=== PATIENT | female | born 1995 | race Caucasian/White ===

== ENCOUNTER 2017-01-20 10:15 | Day surgery (SDC) | payer MEDICAID ==
[2017-01-19 15:30] LABS: BASOPHILS 0.4 % (0-2); EOSINOPHILS 3.5 % (0-7); HEMATOCRIT 36.1 % (36.0-48.0); HEMOGLOBIN 11.3 g/dL (12-16); IMMATURE GRANULOCYTES 0.1 % (0-5); LYMPHOCYTES 30.5 % (15-50); MCH 23.9 pg (26.0-34.0); MCHC 31.3 g/dL (31.0-37.0); MCV 76.5 fL (80.0-100.0); MEAN PLATELET VOLUME 11.3 fL (7.4-10.4); MONOCYTES 3.8 % (2-11); NEUTROPHILS 61.7 % (40-80); PLATELET COUNT 286 10x3/uL (130-400); RBC 4.72 10x6/uL (4.00-5.40); RDW 15.9 % (11.5-14.5)
[~2017-01-20] VITALS: Ht 157.5 cm; Wt 112.5 kg
--- NOTE | ~2017-01-20 | OP ---
PATIENT NAME: KRISTY GANN MEDICAL RECORD: [id number] :94 LOCATION:D.OPS ADMISSION DATE: SURGEON: GERALDINE HOOPER MD DATE OF OPERATION: 01/20/2017 PREOPERATIVE DIAGNOSIS: Pelvic pain. POSTOPERATIVE DIAGNOSIS: Dense pelvic adhesions. PROCEDURES: 1. Diagnostic laparoscopy. 2. Lysis of adhesions. SURGEON: GERALDINE HOOPER MD SPORTS WRITER: Soledad Patton. ANESTHESIA: General anesthetic with endotracheal intubation. FINDINGS: Both right and left ovaries adhered to the pelvic sidewall with adhesions of both left and right tube to the lower pelvis and cul-de-sac. Peritoneal inclusion cysts encountered on the left side. Left ovary was unremarkable. Right ovary, at the close of the procedure, with dense adhesions to the bladder and lower pelvis. SPECIMENS REMOVED: None. SPECIMEN DISPOSITION: None applicable. ESTIMATED BLOOD LOSS: Less than 75 cc. FLUIDS: 1400cc of lactated Ringer's. URINE OUTPUT: Quantity sufficient prior to the procedure. COMPLICATIONS: None. DRAINS: None. INDICATIONS: The patient is a 21-year-old female with a history of a hysterectomy and now with deep pelvic pain that is persistent. The patient also has dyspareunia. The patient is consented for diagnostic laparoscopy and any indicated procedure. DESCRIPTION OF PROCEDURE: After informed consent was assured, the patient was taken to the operating room where anesthetic was obtained and she was placed in stirrups. The patient was now prepped and draped in the usual sterile fashion. Attention was directed to the umbilicus where an incision was made and trocar inserted. Pneumoperitoneum was developed. An accessory trocar placed in the midline. Through this, a blunt probe was inserted. The bowel was swept free of the pelvis with the patient in steep Trendelenburg position. Dense adhesions were encountered across the lower cul-de-sac. A second trocar was now placed on the right lower quadrant. Through this, a gyrus coagulation cutter was inserted. With the use of the Gyrus and EndoShears, the adhesions were taken down. After the left ovary was freed and tube was freed, visual inspection OPERATIVE REPORT [id number] KRISTY GANN revealed adhesions without overt evidence of endometriosis. The right side dissection yields only partial freeing of the right ovary. With the dense adhesions to the bladder and sidewall, dissection was discontinued. The pelvis was irrigated with a 20 cc syringe and water and then this was removed. Operative field was inspected and adequate hemostasis has been achieved. The accessory trocars were removed under direct visualization as the pneumoperitoneum was released. Primary trocar was now removed and the skin was reapproximated with a subcuticular stitch. All sites were covered. Sponge, lap and needle count was correct times 2. TRANSINT:[id number] Voice Confirmation ID: [id number] DOCUMENT ID: [id number] GERALDINE HOOPER MD CC: [id number] DICTATION DATE: 01/22/17802 RESIDENTIAL GREEN BUILDING DESIGNER: 01/22/17 0939 [facility] 01/20/17 [facility] [address] [place] [address]
[2017-01-20 07:23] VITALS: BP 110/63; Ht 157.5 cm; Wt 112.5 kg
== END 2017-01-20 15:33 | disposition home or self-care (01) ==
LOC: D.OPS 10:15
PROVIDERS: Obstetrics & Gynecology
DX: N83.209 Unspecified ovarian cyst, unspecified side (principal); R10.2 Pelvic and perineal pain; E66.9 Obesity, unspecified; Z68.42 Body mass index [BMI] 45.0-49.9, adult; Z01.812 Encounter for preprocedural laboratory examination

== ENCOUNTER 2017-02-08 05:04 | Inpatient (IN) | payer MEDICAID ==
[2017-02-05 10:35] LABS: HEMATOCRIT 39.5 % (36.0-48.0); MCH 24.2 pg (26.0-34.0); MCHC 30.4 g/dL (31.0-37.0); MCV 79.8 fL (80.0-100.0); MEAN PLATELET VOLUME 11.4 fL (7.4-10.4); RBC 4.95 10x6/uL (4.00-5.40); RDW 16.6 % (11.5-14.5); WBC 6.5 10x3/uL (4.8-10.8)
[2017-02-08] VITALS (16 sets, daily range): BP systolic 104–137; BP diastolic 53–84; BMI 45.5
--- NOTE | 2017-02-08 11:50 | NUR ---
RECEIVED PT FROM VIA STRETCHER TO ROOM 1274. PT TRANSFERS ONTO BED PER SELF. VSS. PT SLIGHTLY DROWSY. HRRR WITHOUT AUDIBLE MURMUR. BBS CLEAR. BS X 4-HYPOACTIVE X 4. ABDOMINAL DRESSING DRY WITHOUT DRAINAGE. ICE PACK TO INCISION. NO VAGINAL DISCHARGE NOTED. NEG HOMANS' SIGN. PPP. MILD NON-PITTING EDEMA NOTED TO BLE. KAUR TO GRAVITY DRAINING CLOUDY, YELLOW URINE. SCDS ON BLE. PUMP ON. PT INSTRUCTED ON PURPOSE. VERBALIZES UNDERSTANDING. PIV OF LR INFUSING AT 125 ML/R TO RIGHT AC- 22 GAUGE IV. SITE CLEAR. PT C/O INCISIONAL PAIN OF "9" ON 0-10 PAIN SCALE. PT ORIENTED TO ROOM, BED, AND CALL LIGHT. SR UPX2. CALL LIGHT IN REACH. FAMILY AT BEDSIDE.
--- NOTE | 2017-02-08 12:19 | NUR ---
MORPHINE INTERNET SALES MANAGER STARTED ORDERED. PT INSTRUCTED ON MEDICATION AND USE OF BUTTON. PT DEMONSTRATES UNDERSTANDING OF USE OF BUTTON. PT ALSO GIVEN TORADOL 30 MG IVP OVER 2 MINUTES. PT INSTRUCTED ON MED. VERBALIZES UNDERSTANDING.
--- NOTE | 2017-02-08 13:48 | NUR ---
PT LYING SUPINE IN BED. EYES CLOSED. RESP NON-LABORED. PT NOT DISTURBED TO ALLOW FOR REST.
--- NOTE | 2017-02-08 14:15 | NUR ---
PT MOTHER AT DESK. STATES PT REQUESTING SOMETHING TO DRINK. PT DENIES NAUSEA. [place]EMON-[place]OWER [place] SODA PROVIDED TO PT.
--- NOTE | 2017-02-08 14:48 | NUR ---
PT LYING SUPINE IN BED. WAKES UPON VERBAL STIMULATION. ABDOMINAL DRESSING DRY WITHOUT DRAINAGE NOTED. STATES PAIN "6" ON 0-10 PAIN SCALE. STATES PAIN MED RELIEVING PAIN. VOICES NO NEEDS.
--- NOTE | 2017-02-08 15:36 | NUR ---
SOLAR PHOTOVOLTAIC INSTALLER MORPHINE 2 MG BOLUS DOSE GIVEN ORDERED FOR PT C/O INCISIONAL PAIN OF "7" ON 0-10 PAIN SCALE.
--- NOTE | 2017-02-08 16:00 | NUR ---
DR HOOPER TO ROOM. VISITS WITH PT AND PT MOTHER.
--- NOTE | 2017-02-08 16:41 | NUR ---
I/O COMPLETED. PT PROVIDED ICE WATER AND ENCOURAGED TO CONSUME TOLERATED. VERBALIZES UNDERSTANDING.
--- NOTE | 2017-02-08 17:30 | NUR ---
DR HOOPER VISITS WITH PT.
--- NOTE | 2017-02-08 18:00 | NUR ---
PT SITTING UP IN BED. CONSUMING CLEAR LIQUID DIET. TOLERATING WELL.
--- NOTE | 2017-02-08 18:30 | NUR ---
PT LYING SUPINE AND TILTED TO RIGHT SIDE. PROPPED WITH PILLOW. EYES CLOSED. RESP NON-LABORED. PT NOT DISTURBED TO ALLOW FOR REST.
--- NOTE | 2017-02-08 19:19 | NUR ---
PT. AWAKENS TO MOVEMENT IN ROOM. MALE SITTING ON SOFA RUNNING REMOTE CONTROL CAR ACROSS FLOOR. IV OF LACTATED RINGERS INFUSING IN RT AC AREA. NO REDNESS NOR EDEMA NOTED AT IV SITE. IV FLOW RATE AT 125CC/HR. BOWEL SOUNDS HYPOACTIVE AND BREATH SOUNDS CLEAR. ABD. TELFA DRESSING NOTED OVER LOWER ABD. THAT IS CLEAN AND DRY. NO VAGINAL DISCHARGE NOTED. SCDS ON AND FUNCTIONAL. ABD. WITHOUT DISTENSION. KAUR PATENT AND DRAINING WITH 200CC NOTED IN METER AND DRAINAGE BAG. PT. ENCOURAGED TO COUGH AND DEEP BREATH WHICH PT. RESPONDS THAT SHE HAS BEEN. DOZING FREQUENTLY DURING ASSESSMENT. RATES PAIN AN 8 OF 10 ANS STATES HER PAIN MED HAS NOT BEEN WORKING WELL THE LAST 2 HOURS. NODE JS DEVELOPER OF MORPHINE NOTED AT BEDSIDE WITH APPROX. 5ML REMAINING. ICE CAP NOTED TO ABD. DRESSING. ABLE TO MOVE BOTH LEGS ON COMMAND.
--- NOTE | 2017-02-08 19:44 | NUR ---
VISITOR AT BEDSIDE AT PRESENT. PT. AWAKE BUT NOT TALKING AT PRESENT.
--- NOTE | 2017-02-08 20:35 | NUR ---
PT. AWAKENED TO SCAN [place] FOR TORODOL. CONTINUES TO RATE PAIN AN 8 OF 10 ON PAIN SCALE. RELATES THAT SHE HAS NEVER HAD "THIS KIND" OF SURGERY. DISCUSSED WITH PT. THAT DUE TO CUTTING MUSCLE THAT WE WOULD LIKE TO GET HER PAIN TO A 4 OF 10 BUT SHE SHOULD NOT EXPECT TO BE PAIN FREE. PT. STATES UNDERSTANDING. INFORMED OF PURPOSE OF TORADOL AND INFORMED THAT THIS MED COULD ALSO HELP WITH HER PAIN. ENCOURAGED TO COUGH AND DEEP BREATH AND ALSO CHANGED PT. POSITION FOR RT TILT TO RT. SIDE. PT. TURNED WITHOUT ASSISTANCE. KAUR PATENT AND DRAINING WITH 350CC NOTED IN URINE METER. IV CONTINUES AT 125CC/HR. SCDS ON AND FUNCTIONAL. NO VAG. DISCHARGE NOTED. LIGHTS DIMMED. EXPLAINED TO PT. IMPORTANCE OF COUGHING AND DEEP BREATHING AND PT. AGAIN STATES UNDERSTANDING. ENCOURAGED PT. TO SPLINT ABD. WHEN COUGHING.
--- NOTE | 2017-02-08 21:09 | NUR ---
INTO ROOM AND PT. ASLEEP. MALE ON SOFA REQUESTING BLANKET. PILLOW AND BLANKET GIVEN TO HIM. MALE WAKES PT. UP DRAGGING REMOTE FROM UNDER HER ARM AND TURNING TV ON.
--- NOTE | 2017-02-08 21:19 | NUR ---
PEDI INTO ROOM TO TALK WITH PT. REMAINS IN ROOM.
--- NOTE | 2017-02-08 21:57 | NUR ---
SEARCH SPECIALIST SYRINGE EMPTY. SEARCH SPECIALIST TURNED OFF AT THIS TIME.
--- NOTE | 2017-02-08 22:00 | NUR ---
PRESIDING JUDGE COMPLETED AND OFF.
--- NOTE | 2017-02-08 22:10 | NUR ---
DR. HOOPER CALLED AND INFORMED FINGER GRIP MACHINE OPERATOR COMPLETED AND INQUIRED IF PLANS WERE TO CONVERT TO ORAL MEDS. INFORMED THAT EMA REPORTED THAT HE WAS GOING TO CALL UNIT THIS PM FOR FURTHER ORDERS. ORDERS RECEIVED.
--- NOTE | 2017-02-08 22:21 | NUR ---
PT. LYING ON BACK WITH EYES CLOSED. RESPIRATIONS REGULAR.
--- NOTE | 2017-02-08 22:34 | NUR ---
PT. CALLED REQUESTING PAIN MED. PERCOCET 5/325 GIVEN ORDERED WITH ICE WATER PROVIDED. RATES PAIN A 9 OF 10 ON PAIN SCALE. PT. CURRENTLY LOOKING ON PHONE. LIGHTS DIMMED IN ROOM. COUGHING AND DEEP BREATHING DEMONSTRATED X 2 WITH ENCOURAGEMENT.
--- NOTE | 2017-02-08 22:39 | NUR ---
KAUR CATH. DISCONTINUED WITH 270CC NOTED IN URINE METER. IV CONTINUES TO INFUSE AT 125CC/HR. INFORMED PT. THAT BLADDER WAS EMPTIED PRIOR TO TAKING KAUR OUT SO WOULD PROBABLY BE 3-4 HOURS BEFORE NEEDING TO GET UP. PT. STATED UNDERSTANDING. INFORMED OF NOURISHMENTS AVAILABLE . DEX SERVED TO PT. ICE CAP REFILLED FOR ABD. TELFA DRESSING DRY AND INTACT. NO VAG. DRAINAGE NOTED.
--- NOTE | 2017-02-08 23:19 | NUR ---
PT. CONTINUES TO LOOK AT PHONE. REPORTS PAIN IS A 6 OF 10 ON PAIN SCALE. STATES SHE STILL HAS SOME PAIN. AGAIN REVIEWED WITH PT. THAT PAIN MAY NOT BE COMPLETELY RELEAVED BUT SOME IMPROVEMENT IS BEING SEEN AND MED WILL CONTINUE TO WORK SO SOME TIME. PT. STATES UNDERSTANDING. MALE LYING ON SOFA AND STATES HE HELPED HER PUT SOME SHORTS ON.
--- NOTE | 2017-02-09 00:50 | NUR ---
INTO ROOM TO CHECK ON PT. PT. NOTED TO BE SITTING ON SIDE OF BED. SCD SLEEVES OFF AND LYING ON BED. INQUIRED WHY PT. ON SIDE OF BED. PT. STATES THAT SHE PUSHED CALL LIGHT 3 TIMES AND COULDN'T GET IT TO WORK SO SHE GOT UP AND WENT TO BATHROOM AND HAD RETURNED TO BED. STATES SHE VOIDED WELL. PUSHED CALL LIGHT AND CALL LIGHT ALARMED ON FIRST PUSH IN ORDER TO TEST IF CALL LIGHT WAS FUNCTIONAL. PT. OF A CALM DEMEANOR. BACK INTO BED AND SCDS REAPPLIED AND PUMP FUNCTIONAL. SIDE RAILS X 2 REMAIN UP. CALL LIGHT WITHIN REACH. FOB SLEEPING ON SOFA. ORANGE JUICE SERVED PER PT. REQUEST. PT. RATES PAIN A 7 OF 10 AND IS LOOKING ON PHONE. VOIDED 100CC ON [place] HAT.
[2017-02-09 00:52] VITALS: BP 126/61
--- NOTE | 2017-02-09 01:53 | NUR ---
IV PUMP ALARMING OFTEN WITH PT. BENDING RT ARM WITH AC IV PLACEMENT. WASHCLOTH DOUBLED AND TAPED TO AC TO HELP PT. REMEMBER NOT TO BEND ARM BUT HAS BEEN MINIMALLY EFFECTIVE. PT. AWAKE AT PRESENT. STATES SHE IS FEELING A LITTLE NAUSEA. EMESIS BAG GIVEN TO PT. AND COOL CLOTH TO NECK. MALE SLEEPING ON SOFA.
--- NOTE | 2017-02-09 02:11 | NUR ---
PT. TURNED SELF TO RT SIDE AND DOZING AT INTERVALS. IV OF LR COMPLETED AND NEXT LITER UP. MALE SLEEPING ON SOFA.
--- NOTE | 2017-02-09 04:02 | NUR ---
RN CALLED TO PT BS. PT AMBULATED TO BR WITH NO ASSISTANCE. PT ASSISTED WITH REPLACING SCD'S TO LOWER EXTREMITIES. ICE PACK REFRESHED FOR INCISION. PT DENIES ANY FURTHER NEEDS AT THIS TIME. BED IN LOW POSITION, SIDE RAILS UP TIMES 2, CALL LIGHT AND PHONE IN REACH. WILL CONT TO MONITOR PT STATUS.
--- NOTE | 2017-02-09 04:27 | NUR ---
PT. LYING ON RT SIDE. AWAKENED FOR TORADOL IVP SLOWLY INJECTION. RATES PAIN A 6 OF 10 ON PAIN SCALE. PERCOCET 5/325 ALSO ADMINISTERED. ICE WATER PROVIDED. PT. POSITIONED SELF TO LEFT SIDE. IV IN LT AC AREA WITHOUT REDNESS NOR EDEMA. SCDS ON AND FUNCTIONAL. MALE SLEEPING ON SOFA. VITAL SIGNS OBTAINED.
[2017-02-09 04:30] VITALS: BP 116/62
[2017-02-09 05:06] LABS: HEMATOCRIT 34.9 % (36.0-48.0); MCH 24.3 pg (26.0-34.0); MCHC 31.5 g/dL (31.0-37.0); MCV 77.2 fL (80.0-100.0); MEAN PLATELET VOLUME 10.7 fL (7.4-10.4); RBC 4.52 10x6/uL (4.00-5.40); RDW 15.8 % (11.5-14.5); WBC 10.5 10x3/uL (4.8-10.8)
--- NOTE | 2017-02-09 05:26 | NUR ---
LYING ON RT SIDE WITH RESPIRATIONS REGULAR. DOES NOT AROUSE TO THIS NURSE IN ROOM.
--- NOTE | 2017-02-09 06:23 | NUR ---
LYING ON BACK WITH EYES CLOSED. RESPIRATIONS REGULAR. DR. HOOPER CALLED Martine VOGT RN WITH ORDER FOR REGULAR DIET.
[2017-02-09 07:26] VITALS: BP 97/50
--- NOTE | 2017-02-09 07:26 | NUR ---
RECEIVED PT LYING TO RIGHT SIDE. WAKES UPON VERBAL STIMULATION. VSS. HRRR WITHOUT AUDIBLE MURMUR. BBS CLEAR. BS X 4. ABDOMEN SOFT. DRESSING DRY WITHOUT NEW DRAINAGE. NO VAGINAL DISCHARGE NOTED. NEG HOMANS' SIGN. PPP. NO EDEMA NOTED TO BLE. SCDS ON BLE. PIV OF LR INFUSING AT 75 ML/HR. SITE CLEAR TO RIGHT AC. DR HOOPER HERE. VISITS WITH PT. PT SITS UP FOR BREAKFAST. BREAKFAST SERVED. PT PROVIDED [place] SODA AT REQUEST.
--- NOTE | 2017-02-09 07:34 | OP ---
PATIENT NAME: KRISTY GANN MEDICAL RECORD: [id number] :94 LOCATION:[id number] ADMISSION DATE:02/08/17 SURGEON: GERALDINE HOOPER MD DATE OF OPERATION: 02/08/2017 PREOPERATIVE DIAGNOSES: 1. History of pelvic adhesive disease. 2. Chronic pelvic pain. POSTOPERATIVE DIAGNOSES: 1. History of pelvic adhesive disease. 2. Chronic pelvic pain. PROCEDURE: 1. Exploratory laparotomy. 2. Lysis of adhesions. 3. Right salpingo-oophorectomy. 4. Left salpingectomy. SURGEON: Geraldine Hooper MD FLAGSTONE LAYER: Mr. Lucio ANESTHESIOLOGIST: Dr. Dixon. ANESTHESIA: General anesthetic with endotracheal intubation. FINDINGS: Dense pelvic adhesions of the ovary to the sidewall and bladder. Hydrosalpinx identified on the left. SPECIMENS REMOVED: Right tube and ovary and left tube. Specimen disposition, pathology. ESTIMATED BLOOD LOSS: Less than or equal to 50 cc. FLUIDS: 1100cc of lactated Ringer's. URINE OUTPUT: Quantity sufficient void prior to the procedure. COMPLICATIONS: None. DRAINS: Cho to gravity. INDICATIONS: The patient is a 21-year-old female with prior diagnostic laparoscopy showing dense pelvic adhesive disease. The patient has had chronic right pelvic pain. The patient declined medical management with ovarian suppression with Depo Lupron and requests aggressive therapy for her persistent right lower quadrant pain. DESCRIPTION OF PROCEDURE: After risks, benefits and limitations have been described at length, the patient was consented and taken to the operating room where anesthetic was obtained. She was supine on the table and prepped and draped in usual sterile fashion. Pfannenstiel incision was made and the abdomen was entered. Using the Armada retractor and Loza retractor, the bowel was packed free of the pelvis and a Armada retracted the bowel and the superior OPERATIVE REPORT [id number] KRISTY GANN aspect of the incision caudally. The right tube was identified and grasped with Florence clamp. Using long Metzenbaum scissors and pickups, the adhesions were taken down medial to laterally. Once the inferior aspect of the ovary was freed, attention was directed further laterally where the denser adhesions were taken down. Once the pedicle was freed, 2 Zeppelin clamps were placed and the ovary and tube removed. A tie on a pass and a epkc-cbt-owo stitch was placed for hemostasis on the right infundibulopelvic ligament. Attention was directed to the left where hydrosalpinx was encountered and elevated with Babcocks. A 90 degree right angle Zeppelin clamp was placed underneath the hydrosalpinx on the left. This was removed with Metzenbaum scissors and a egtr-vre-exc stitch applied for hemostasis. Pelvis was copiously irrigated and irrigant removed. Fascia was now closed in a running fashion with looped PDS. Subcutaneous tissues were irrigated, bleeding vessels cauterized and the deep tissues were reapproximated with a plain gut stitch. The skin was reapproximated with 4-0 Monocryl on PS2 needle and sterile dressing applied. Sponge, lap and needle counts correct times 2 at the close of this procedure. TRANSINT:[id number] Voice Confirmation ID: [id number] DOCUMENT ID: [id number] GERALDINE HOOPER MD at 0734 CC: [id number] DICTATION DATE: 02/08/17 111 SALES PERFORMANCE ANALYST: 02/08/17 1256 ADM IN [facility] [address] [place] [address]
--- NOTE | 2017-02-09 08:30 | NUR ---
PIV CONVERTED TO SALINE LOCK. PT OOB AND AMB TO BR TO SHOWER. 300 ML OF CLEAR, YELLOW URINE NOTED IN SPECIPAN. BED LINENS CHANGED.
--- NOTE | 2017-02-09 08:45 | NUR ---
PT FINISHED WITH SHOWER. PT BACK TO BED. SL LEAKING. DOES NOT FLUSH. DC'D WITH CATHELON INTACT. PRESSURE BANDAGE TO SITE. ABDOMINAL DRESSING REMOVED. INCISION MOIST. STERISTRIPS INTACT. NO REDNESS OR SWELLING NOTED. PERIPAD TO INCISION TO MONITOR DISCHARGE/DRAINAGE.
--- NOTE | 2017-02-09 10:04 | NUR ---
PT LYING TO RIGHT SIDE IN BED. EYES CLOSED. RESP NON-LABORED. PT NOT DISTURBED TO ALLOW FOR REST.
--- NOTE | 2017-02-09 10:59 | NUR ---
PT OOB AND AMB IN HALLS.
[2017-02-09 11:01] VITALS: BP 108/58
--- NOTE | 2017-02-09 11:21 | NUR ---
PT AMBULATES BACK TO ROOM. STATES NIXON WELL.
--- NOTE | 2017-02-09 12:03 | NUR ---
PT SITTING UP IN BED. CONSUMING REG DIET. C/O INCISIONAL PAIN OF "6-7" ON 0-10 PAIN SCALE. PERCOCET 5/325 GIVEN PO ORDERED. PT INSTRUCTED ON MED. VERBALIZES UNDERSTANDING.
--- NOTE | 2017-02-09 13:00 | NUR ---
DR HOOPER NOTIFIED PT EATING, VOIDING.
--- NOTE | 2017-02-09 14:14 | NUR ---
PT LYING TO LEFT SIDE IN BED. EYES CLOSED. RESP NON-LABORED. PT NOT DISTURBED TO ALLOW FOR REST.
--- NOTE | 2017-02-09 14:30 | NUR ---
DR HOOPER CALLS. [facility]. RTC IN 2 WEEKS. RX ON CHART.
[2017-02-09] MEDS ORDERED: IBUPROFEN800 MG PO (15:09)
[2017-02-09] MEDS ORDERED: PERCOCET 7.5/321 TAB PO (15:10)
--- NOTE | 2017-02-09 15:17 | NUR ---
PT INFORMED OF ORDER RECEIVED FROM DR HOOPER FOR DISCHARGE. PT VERBALIZES UNDERSTANDING AND IN AGREEMENT.
--- NOTE | 2017-02-09 15:40 | NUR ---
DISCHARGE INSTRUCTIONS GIVEN TO PT. PT VERBALIZES UNDERSTANDING OF ALL INSTRUCTIONS. COPIES GIVEN TO PT. RX FOR MOTRIN 800 MG AND PERCOCET 7.5/325 GIVEN TO PT. PT PREPARES FOR DISCHARGE.
--- NOTE | 2017-02-09 16:15 | NUR ---
PT READY FOR DISCHARGE. DISCHARGED VIA WHEELCHAIR TO PRIVATE VEHICLE. PT NIXON WELL.
--- NOTE | 2017-03-12 12:10 | DS ---
PATIENT:KRISTY GANN :89 MEDICAL RECORD: [id number] DISCHARGE SUMMARY ADMISSION DATE: 02/08/17 DISCHARGE DATE: 02/09/17 DATE OF ADMISSION: 02/08/2017. DATE OF DISCHARGE: 02/09/2017. ADMISSION DIAGNOSES: 1. Chronic pelvic pain. 2. Chronic salpingitis. 3. Adhesive disease. DISCHARGE DIAGNOSES: 1. Chronic pelvic pain. 2. Chronic salpingitis. 3. Adhesive disease. PROCEDURE PERFORMED WHILE HOSPITALIZED: Exploratory laparotomy with lysis of adhesions, RSO and left salpingectomy. ATTENDING PHYSICIAN: Geraldine Hooper MD HISTORY OF PRESENT ILLNESS: See the H&P in the chart. SUMMARY OF HOSPITALIZATION: The patient was admitted to the hospital and underwent procedure without incident. At the time of discharge, she is tolerating a regular diet and voiding without difficulty. The patient's discharge medications will include Percocet and ibuprofen. The patient has been given instructions as to wound care and will follow up in the clinic in 2 weeks. TRANSINT:[id number] Voice Confirmation ID: [id number] DOCUMENT ID: [id number] GERALDINE HOOPER MD at 1210 CC: [id number] DICTATION DATE: 03/04/17 0655 CORE SETTER: 03/04/17 1150 DIS IN 02/09/17 [id number] [place] [address]
== END 2017-02-09 16:15 | disposition home or self-care (01) | DRG 743 ==
LOC: D.SDCHOLD 05:04 → D.LD 11:36
PROVIDERS: ADMIT Obstetrics & Gynecology
PROC: 0UT00ZZ Resection of Right Ovary, Open Approach (ICD-10-PCS; 2017-02-08)
PROC: 0UT60ZZ Resection of Left Fallopian Tube, Open Approach (ICD-10-PCS; principal; 2017-02-08 09:00)
PROC: 0UT50ZZ Resection of Right Fallopian Tube, Open Approach (ICD-10-PCS; 2017-02-08 09:00)
DX: N70.11 Chronic salpingitis (principal); N32.89 Other specified disorders of bladder; N73.6 Female pelvic peritoneal adhesions (postinfective)

== ENCOUNTER 2017-02-10 01:10 | Emergency (ER) | payer MEDICAID ==
[2017-02-08 18:08] VITALS: BMI 45.5
[~2017-02-10 01:10] MED LIST: IBUPROFEN800 MG PO; PERCOCET 7.5/321 TAB PO
[2017-02-10 02:40] LABS: APPEARANCE CLOUDY (CLEAR); BILIRUBIN NEGATIVE (NEGATIVE); COLOR YELLOW (YELLOW); GLUCOSE NEGATIVE (NEGATIVE); KETONE NEGATIVE (NEGATIVE); NITRITE NEGATIVE (NEGATIVE); PROTEIN TRACE mg/dL (NEGATIVE); UROBILINOGEN NORMAL (NORMAL)
[2017-02-10 02:41] LABS: BACTERIA MODERATE /hpf (NONE SEEN); EPITHELIAL CELLS 0-5 /hpf (0-5); RED CELLS - URINE 0-5 /hpf (0-5)
[2017-02-10 02:42] LABS: YEAST >1+ WITH HYPHAE /hpf (NONE SEEN)
== END 2017-02-10 03:09 | disposition home or self-care (01) ==
LOC: D.ER 01:10
PROVIDERS: Family Medicine
DX: G89.18 Other acute postprocedural pain (principal); N39.0 Urinary tract infection, site not specified; B37.3 Candidiasis of vulva and vagina

== ENCOUNTER 2017-03-16 19:21 | Emergency (ER) | payer MEDICAID ==
[2017-02-08 18:08] VITALS: BMI 45.5
[2017-03-16 19:49] LABS: BASOPHILS 0.2 % (0-2); EOSINOPHILS 2.4 % (0-7); HEMATOCRIT 37.4 % (36.0-48.0); HEMOGLOBIN 11.6 g/dL (12-16); IMMATURE GRANULOCYTES 0.2 % (0-5); LYMPHOCYTES 34.1 % (15-50); MCH 24.5 pg (26.0-34.0); MCV 78.9 fL (80.0-100.0); MEAN PLATELET VOLUME 11.1 fL (7.4-10.4); MONOCYTES 5.2 % (2-11); NEUTROPHILS 57.9 % (40-80); PLATELET COUNT 257 10x3/uL (130-400); RBC 4.74 10x6/uL (4.00-5.40); RDW 15.2 % (11.5-14.5); WBC 8.3 10x3/uL (4.8-10.8)
[2017-03-16 20:37] LABS: HCG SERUM NEGATIVE (NEGATIVE)
[2017-03-16 21:00] LABS: APPEARANCE CLEAR (CLEAR); COLOR YELLOW (YELLOW)
[2017-03-16 21:01] LABS: BILIRUBIN NEGATIVE (NEGATIVE); GLUCOSE NEGATIVE (NEGATIVE); KETONE NEGATIVE (NEGATIVE); NITRITE NEGATIVE (NEGATIVE); PROTEIN NEGATIVE (NEGATIVE); UROBILINOGEN NORMAL (NORMAL)
[2017-03-16 21:06] LABS: ALBUMIN 3.7 g/dL (3.4-5.0); ALKALINE PHOSPHATASE 86 U/L (46-116); ALT (SGPT) 21 U/L (10-68); CALC OSMOLALITY 276 mosm/kg (275-300); CALCIUM 8.9 mg/dL (8.5-10.1); CARBON DIOXIDE 25.9 mmol/L (21.0-32.0); CHLORIDE - SERUM 104 mmol/L (98-107); CREATININE - SERUM 0.7 mg/dL (0.6-1.3); GLUCOSE 94 mg/dL (74-106); POTASSIUM - SERUM 4.3 mmol/L (3.5-5.1); PROTEIN - SERUM 7.2 g/dL (6.4-8.2); SODIUM 140 mmol/L (136-145); UREA NITROGEN 8 mg/dL (7-18); eGFR NON AFRICAN AMERICAN > 90 mL/min (90-120)
== END 2017-03-16 22:30 | disposition home or self-care (01) ==
LOC: D.ER 19:21
PROVIDERS: Emergency Medicine
DX: N83.202 Unspecified ovarian cyst, left side (principal)

== ENCOUNTER 2017-03-18 14:53 | Emergency (ER) | payer MEDICAID ==
[2017-02-08 18:08] VITALS: BMI 45.5
[2017-03-18 16:08] LABS: BASOPHILS 0.3 % (0-2); EOSINOPHILS 1.9 % (0-7); HEMATOCRIT 35.9 % (36.0-48.0); HEMOGLOBIN 11.2 g/dL (12-16); IMMATURE GRANULOCYTES 0.1 % (0-5); LYMPHOCYTES 30.2 % (15-50); MCH 24.6 pg (26.0-34.0); MCHC 31.2 g/dL (31.0-37.0); MCV 78.9 fL (80.0-100.0); MEAN PLATELET VOLUME 11.4 fL (7.4-10.4); MONOCYTES 6.7 % (2-11); NEUTROPHILS 60.8 % (40-80); PLATELET COUNT 260 10x3/uL (130-400); RBC 4.55 10x6/uL (4.00-5.40); RDW 15.5 % (11.5-14.5); WBC 7.3 10x3/uL (4.8-10.8)
[2017-03-18 16:09] LABS: APPEARANCE HAZY (CLEAR); BILIRUBIN NEGATIVE (NEGATIVE); COLOR YELLOW (YELLOW); GLUCOSE NEGATIVE (NEGATIVE); KETONE NEGATIVE (NEGATIVE); NITRITE NEGATIVE (NEGATIVE); PROTEIN NEGATIVE (NEGATIVE); UROBILINOGEN NORMAL (NORMAL)
[2017-03-18 16:21] LABS: ALBUMIN 3.5 g/dL (3.4-5.0); ALKALINE PHOSPHATASE 83 U/L (46-116); ALT (SGPT) 33 U/L (10-68); BILIRUBIN - TOTAL 0.26 mg/dL (0.2-1.3); CALC OSMOLALITY 277 mosm/kg (275-300); CALCIUM 8.8 mg/dL (8.5-10.1); CARBON DIOXIDE 27.1 mmol/L (21.0-32.0); CHLORIDE - SERUM 103 mmol/L (98-107); CREATININE - SERUM 0.7 mg/dL (0.6-1.3); GLUCOSE 90 mg/dL (74-106); POTASSIUM - SERUM 3.7 mmol/L (3.5-5.1); PROTEIN - SERUM 7.1 g/dL (6.4-8.2); SODIUM 140 mmol/L (136-145); UREA NITROGEN 10 mg/dL (7-18); eGFR NON AFRICAN AMERICAN > 90 mL/min (90-120)
[2017-03-18 18:24] LABS: HCG SERUM NEGATIVE (NEGATIVE)
== END 2017-03-18 18:56 | disposition home or self-care (01) ==
LOC: D.ER 14:53
PROVIDERS: Emergency Medicine
DX: R10.32 Left lower quadrant pain (principal); N83.202 Unspecified ovarian cyst, left side

== ENCOUNTER 2017-04-06 00:52 | Emergency (ER) | payer MEDICAID ==
[2017-02-08 18:08] VITALS: BMI 45.5
[2017-04-06 02:00] LABS: APPEARANCE HAZY (CLEAR); BILIRUBIN NEGATIVE (NEGATIVE); COLOR YELLOW (YELLOW); GLUCOSE NEGATIVE (NEGATIVE); KETONE NEGATIVE (NEGATIVE); NITRITE NEGATIVE (NEGATIVE); PROTEIN NEGATIVE (NEGATIVE); SPECIFIC GRAVITY 1.015 (1.005-1.020); UROBILINOGEN NORMAL (NORMAL)
[2017-04-06 02:01] LABS: BACTERIA FEW /hpf (NONE SEEN); EPITHELIAL CELLS 0-5 /hpf (0-5); RED CELLS - URINE 0-5 /hpf (0-5); WHITE CELLS - URINE 0-5 /hpf (0-5)
== END 2017-04-06 02:40 | disposition home or self-care (01) ==
LOC: D.ER 00:52
PROVIDERS: Family Medicine
DX: N83.202 Unspecified ovarian cyst, left side (principal)

== ENCOUNTER 2017-04-08 13:58 | Emergency (ER) | payer MEDICAID ==
[2017-02-08 18:08] VITALS: BMI 45.5
[2017-04-08 14:42] LABS: BASOPHILS 0.3 % (0-2); EOSINOPHILS 1.5 % (0-7); HEMATOCRIT 36.9 % (36.0-48.0); HEMOGLOBIN 11.4 g/dL (12-16); IMMATURE GRANULOCYTES 0.1 % (0-5); LYMPHOCYTES 30.3 % (15-50); MCH 24.9 pg (26.0-34.0); MCHC 30.9 g/dL (31.0-37.0); MCV 80.6 fL (80.0-100.0); MEAN PLATELET VOLUME 10.9 fL (7.4-10.4); MONOCYTES 5.7 % (2-11); NEUTROPHILS 62.1 % (40-80); PLATELET COUNT 280 10x3/uL (130-400); RBC 4.58 10x6/uL (4.00-5.40); RDW 14.9 % (11.5-14.5); WBC 6.7 10x3/uL (4.8-10.8)
[2017-04-08 15:08] LABS: ALBUMIN 3.5 g/dL (3.4-5.0); ALKALINE PHOSPHATASE 82 U/L (46-116); ALT (SGPT) 20 U/L (10-68); BILIRUBIN - TOTAL 0.16 mg/dL (0.2-1.3); CALC OSMOLALITY 280 mosm/kg (275-300); CALCIUM 8.7 mg/dL (8.5-10.1); CARBON DIOXIDE 31.6 mmol/L (21.0-32.0); CHLORIDE - SERUM 105 mmol/L (98-107); CREATININE - SERUM 0.7 mg/dL (0.6-1.3); GLUCOSE 83 mg/dL (74-106); POTASSIUM - SERUM 3.9 mmol/L (3.5-5.1); PROTEIN - SERUM 7.3 g/dL (6.4-8.2); SODIUM 142 mmol/L (136-145); UREA NITROGEN 9 mg/dL (7-18); eGFR NON AFRICAN AMERICAN > 90 mL/min (90-120)
[2017-04-08 16:03] LABS: APPEARANCE SLT CLOUDY (CLEAR); BILIRUBIN NEGATIVE (NEGATIVE); COLOR YELLOW (YELLOW); GLUCOSE NEGATIVE (NEGATIVE); KETONE NEGATIVE (NEGATIVE); NITRITE NEGATIVE (NEGATIVE); PROTEIN NEGATIVE (NEGATIVE); SPECIFIC GRAVITY 1.015 (1.005-1.020); UDS - AMPHET NEGATIVE QUAL (NEGATIVE); UDS - BARB NEGATIVE QUAL (NEGATIVE); UDS - BENZO NEGATIVE QUAL (NEGATIVE); UDS - COCAINE NEGATIVE QUAL (NEGATIVE); UDS - OPIATE NEGATIVE QUAL (NEGATIVE); UDS - PCP NEGATIVE QUAL (NEGATIVE); UDS - THC NEGATIVE QUAL (NEGATIVE); UROBILINOGEN NORMAL (NORMAL)
== END 2017-04-08 17:11 | disposition home or self-care (01) ==
LOC: D.ER 13:58
PROVIDERS: Family Medicine; Nurse Practitioner Family
DX: R33.9 Retention of urine, unspecified (principal)

== ENCOUNTER 2017-04-11 21:16 | Emergency (ER) | payer MEDICAID ==
[2017-02-08 18:08] VITALS: BMI 45.5
[2017-04-11 22:32] LABS: BASOPHILS 0.4 % (0-2); EOSINOPHILS 2.6 % (0-7); HEMATOCRIT 37.1 % (36.0-48.0); HEMOGLOBIN 11.5 g/dL (12-16); IMMATURE GRANULOCYTES 0.2 % (0-5); LYMPHOCYTES 36.5 % (15-50); MCH 24.7 pg (26.0-34.0); MCV 79.8 fL (80.0-100.0); MEAN PLATELET VOLUME 10.8 fL (7.4-10.4); MONOCYTES 5.6 % (2-11); NEUTROPHILS 54.7 % (40-80); PLATELET COUNT 276 10x3/uL (130-400); RBC 4.65 10x6/uL (4.00-5.40); RDW 15.2 % (11.5-14.5); WBC 8.6 10x3/uL (4.8-10.8)
[2017-04-11 22:47] LABS: HCG SERUM NEGATIVE (NEGATIVE)
[2017-04-11 23:06] LABS: APPEARANCE CLEAR (CLEAR); COLOR YELLOW (YELLOW)
[2017-04-11 23:07] LABS: BILIRUBIN NEGATIVE (NEGATIVE); GLUCOSE NEGATIVE (NEGATIVE); KETONE NEGATIVE (NEGATIVE); NITRITE NEGATIVE (NEGATIVE); PROTEIN NEGATIVE (NEGATIVE); UROBILINOGEN NORMAL (NORMAL)
[2017-04-11 23:08] LABS: BACTERIA MANY /hpf (NONE SEEN); EPITHELIAL CELLS 0-5 /hpf (0-5); WHITE CELLS - URINE 0-5 /hpf (0-5)
== END 2017-04-11 23:40 | disposition home or self-care (01) ==
LOC: D.ER 21:16
PROVIDERS: Emergency Medicine
DX: R10.2 Pelvic and perineal pain (principal)

== ENCOUNTER 2017-04-25 01:51 | Emergency (ER) | payer MEDICAID ==
[2017-02-08 18:08] VITALS: BMI 45.5
[2017-04-25 02:19] LABS: APPEARANCE CLEAR (CLEAR); BILIRUBIN NEGATIVE (NEGATIVE); COLOR YELLOW (YELLOW); GLUCOSE NEGATIVE (NEGATIVE); KETONE NEGATIVE (NEGATIVE); NITRITE NEGATIVE (NEGATIVE); PROTEIN NEGATIVE (NEGATIVE); UROBILINOGEN NORMAL (NORMAL)
[2017-04-25 02:23] LABS: HCG URINE NEGATIVE (NEGATIVE)
[2017-04-25 02:35] LABS: BASOPHILS 0.4 % (0-2); EOSINOPHILS 2.3 % (0-7); HEMATOCRIT 35.4 % (36.0-48.0); IMMATURE GRANULOCYTES 0.1 % (0-5); LYMPHOCYTES 44.1 % (15-50); MCH 24.9 pg (26.0-34.0); MCHC 31.1 g/dL (31.0-37.0); MCV 80.1 fL (80.0-100.0); MEAN PLATELET VOLUME 10.5 fL (7.4-10.4); MONOCYTES 5.9 % (2-11); NEUTROPHILS 47.2 % (40-80); PLATELET COUNT 302 10x3/uL (130-400); RBC 4.42 10x6/uL (4.00-5.40); RDW 14.6 % (11.5-14.5); WBC 7.3 10x3/uL (4.8-10.8)
[2017-04-25 02:48] LABS: ALBUMIN 3.3 g/dL (3.4-5.0); ALKALINE PHOSPHATASE 73 U/L (46-116); ALT (SGPT) 35 U/L (10-68); BILIRUBIN - TOTAL 0.21 mg/dL (0.2-1.3); CALC OSMOLALITY 279 mosm/kg (275-300); CALCIUM 8.5 mg/dL (8.5-10.1); CARBON DIOXIDE 29.9 mmol/L (21.0-32.0); CHLORIDE - SERUM 104 mmol/L (98-107); CREATININE - SERUM 0.7 mg/dL (0.6-1.3); GLUCOSE 89 mg/dL (74-106); POTASSIUM - SERUM 3.6 mmol/L (3.5-5.1); PROTEIN - SERUM 6.6 g/dL (6.4-8.2); SODIUM 142 mmol/L (136-145); UREA NITROGEN 8 mg/dL (7-18); eGFR NON AFRICAN AMERICAN > 90 mL/min (90-120)
== END 2017-04-25 04:50 | disposition home or self-care (01) ==
LOC: D.ER 01:51
PROVIDERS: Family Medicine
DX: R10.32 Left lower quadrant pain (principal)

== ENCOUNTER 2017-06-20 00:50 | Emergency (ER) | payer MEDICAID ==
[2017-02-08 18:08] VITALS: BMI 45.5
[2017-06-20 01:21] LABS: BASOPHILS 0.4 % (0-2); EOSINOPHILS 1.2 % (0-7); HEMATOCRIT 37.3 % (36.0-48.0); HEMOGLOBIN 11.8 g/dL (12-16); IMMATURE GRANULOCYTES 0.4 % (0-5); LYMPHOCYTES 36.2 % (15-50); MCH 25.2 pg (26.0-34.0); MCHC 31.6 g/dL (31.0-37.0); MCV 79.5 fL (80.0-100.0); MEAN PLATELET VOLUME 10.9 fL (7.4-10.4); MONOCYTES 4.5 % (2-11); NEUTROPHILS 57.3 % (40-80); PLATELET COUNT 295 10x3/uL (130-400); RBC 4.69 10x6/uL (4.00-5.40); RDW 14.8 % (11.5-14.5); WBC 8.5 10x3/uL (4.8-10.8)
[2017-06-20 01:32] LABS: APPEARANCE HAZY (CLEAR); BACTERIA FEW /hpf (NONE SEEN); BILIRUBIN NEGATIVE (NEGATIVE); COLOR YELLOW (YELLOW); EPITHELIAL CELLS 0-5 /hpf (0-5); GLUCOSE NEGATIVE (NEGATIVE); KETONE NEGATIVE (NEGATIVE); MUCUS <1+ /lpf (NONE SEEN); NITRITE NEGATIVE (NEGATIVE); PROTEIN TRACE mg/dL (NEGATIVE); SPECIFIC GRAVITY 1.015 (1.005-1.020); UROBILINOGEN NORMAL (NORMAL); WHITE CELLS - URINE 0-5 /hpf (0-5)
[2017-06-20 01:33] LABS: AMORPHOUS SEDIMENT <1+ /lpf (NONE SEEN)
[2017-06-20 01:36] LABS: ALBUMIN 3.7 g/dL (3.4-5.0); ALKALINE PHOSPHATASE 73 U/L (46-116); ALT (SGPT) 21 U/L (10-68); BILIRUBIN - TOTAL 0.18 mg/dL (0.2-1.3); CALC OSMOLALITY 274 mosm/kg (275-300); CALCIUM 8.2 mg/dL (8.5-10.1); CARBON DIOXIDE 28.2 mmol/L (21.0-32.0); CHLORIDE - SERUM 103 mmol/L (98-107); CREATININE - SERUM 0.8 mg/dL (0.6-1.3); GLUCOSE 92 mg/dL (74-106); MAGNESIUM - SERUM 1.7 mg/dL (1.8-2.4); POTASSIUM - SERUM 3.6 mmol/L (3.5-5.1); PROTEIN - SERUM 7.4 g/dL (6.4-8.2); SODIUM 138 mmol/L (136-145); UREA NITROGEN 9 mg/dL (7-18); eGFR NON AFRICAN AMERICAN > 90 mL/min (90-120)
== END 2017-06-20 02:35 | disposition home or self-care (01) ==
LOC: D.ER 00:50
PROVIDERS: Emergency Medicine
DX: R10.9 Unspecified abdominal pain (principal); N83.202 Unspecified ovarian cyst, left side

== ENCOUNTER 2017-07-12 01:52 | Emergency (ER) | payer MEDICAID ==
[2017-02-08 18:08] VITALS: BMI 45.5
== END 2017-07-12 03:03 | disposition home or self-care (01) ==
LOC: D.ER 01:52
DX: G89.18 Other acute postprocedural pain (principal)

== ENCOUNTER 2017-07-15 04:50 | Emergency (ER) | payer MEDICAID ==
[2017-02-08 18:08] VITALS: BMI 45.5
[2017-07-15 06:06] LABS: ALBUMIN 3.3 g/dL (3.4-5.0); ALKALINE PHOSPHATASE 78 U/L (46-116); ALT (SGPT) 25 U/L (10-68); CALC OSMOLALITY 279 mosm/kg (275-300); CALCIUM 8.3 mg/dL (8.5-10.1); CARBON DIOXIDE 27.4 mmol/L (21.0-32.0); CHLORIDE - SERUM 105 mmol/L (98-107); CREATININE - SERUM 0.8 mg/dL (0.6-1.3); GLUCOSE 96 mg/dL (74-106); SODIUM 141 mmol/L (136-145); UREA NITROGEN 10 mg/dL (7-18); eGFR NON AFRICAN AMERICAN > 90 mL/min (90-120)
[2017-07-15 06:30] LABS: BASOPHILS 0.4 % (0-2); EOSINOPHILS 2.2 % (0-7); HEMATOCRIT 38.1 % (36.0-48.0); HEMOGLOBIN 11.9 g/dL (12-16); IMMATURE GRANULOCYTES 0.1 % (0-5); LYMPHOCYTES 37.5 % (15-50); MCH 25.2 pg (26.0-34.0); MCHC 31.2 g/dL (31.0-37.0); MCV 80.5 fL (80.0-100.0); MEAN PLATELET VOLUME 11.2 fL (7.4-10.4); MONOCYTES 4.9 % (2-11); NEUTROPHILS 54.9 % (40-80); PLATELET COUNT 287 10x3/uL (130-400); RBC 4.73 10x6/uL (4.00-5.40); RDW 14.4 % (11.5-14.5); WBC 7.8 10x3/uL (4.8-10.8)
[2017-07-15 06:55] LABS: HCG URINE NEGATIVE (NEGATIVE)
[2017-07-15 07:14] LABS: APPEARANCE HAZY (CLEAR); BACTERIA FEW /hpf (NONE SEEN); BILIRUBIN NEGATIVE (NEGATIVE); COLOR YELLOW (YELLOW); EPITHELIAL CELLS RARE /hpf (0-5); GLUCOSE NEGATIVE (NEGATIVE); KETONE NEGATIVE (NEGATIVE); NITRITE NEGATIVE (NEGATIVE); PROTEIN NEGATIVE (NEGATIVE); RED CELLS - URINE RARE /hpf (0-5); SPECIFIC GRAVITY 1.015 (1.005-1.020); UROBILINOGEN NORMAL (NORMAL)
== END 2017-07-15 07:30 | disposition home or self-care (01) ==
LOC: D.ER 04:50
PROVIDERS: Family Medicine
DX: G89.18 Other acute postprocedural pain (principal); T81.31XA Disruption of external operation (surgical) wound, not elsewhere classified, initial encounter

== ENCOUNTER 2018-09-16 06:24 | Day surgery (SDC) | payer MEDICAID ==
[2018-09-16 06:53] LABS: HEMATOCRIT 38.2 % (36.0-48.0); HEMOGLOBIN 12.5 g/dL (12-16); MCH 27.5 pg (26.0-34.0); MCHC 32.7 g/dL (31.0-37.0); MCV 84.1 fL (80.0-100.0); MEAN PLATELET VOLUME 10.7 fL (7.4-10.4); RBC 4.54 10x6/uL (4.00-5.40); RDW 13.1 % (11.5-14.5)
[2018-09-16 08:02] VITALS: BP 119/71; BMI 49.7
--- NOTE | 2018-10-04 14:43 | HP ---
PATIENT: MARISA GANN MEDICAL RECORD: [id number] ACCOUNT: [id number] LOCATION:[facility] : 89 ADMISSION DATE: 09/16/18 PCP: FRANKIE CLANCY MD HISTORY AND PHYSICAL EXAMINATION HISTORY OF PRESENT ILLNESS: Marisa is 22 years old. She has had many sets of tubes through the years and she came in with right middle ear atelectasis. I talked about placing a right T-tube in the office, but she apparently had a really bad experience in the past and is unable to try that in the office. We are admitting her for right T-tube. PAST SURGICAL HISTORY: Includes tubal ligation, hysterectomy, myringotomy and tubes. ALLERGIES: SHE LISTS MORPHINE. PHYSICAL EXAMINATION: GENERAL: She is healthy-appearing, developmentally normal. FACE: Normal, symmetric, no lesions. EYES: Sclerae and conjunctivae are normal. EARS: Left, she has got a tube in place and patent, clean and dry. TM looks good. The right ear, there is no tube. The TM is intact. There is severe middle ear atelectasis and retraction with some flory-colored effusion. NOSE: No masses, polyps or drainage. ORAL CAVITY AND OROPHARYNX: Tongue protrudes in the midline. Pharynx is normal. NECK: No masses, no adenopathy. CHEST: Clear. CARDIOVASCULAR: Regular rate and rhythm, no murmur. EXTREMITIES: Normal. IMPRESSION: Eustachian tube dysfunction, right TM severe atelectasis, conductive hearing loss. PLAN: Right tympanostomy tube with a T-tube. TRANSINT:[id number] Voice Confirmation ID: [id number] DOCUMENT ID: [id number] MICHAEL GARCIA MD at 1443 CC: [id number] DICTATION DATE: 09/14/18 1459 BOOK REPAIRER: 09/14/18 1519 [facility] 09/16/18 [place] [id number] [place] [id number]
--- NOTE | 2018-10-04 14:43 | OP ---
PATIENT NAME: KRISTY GANN MEDICAL RECORD: [id number] :94 LOCATION:[facility] ADMISSION DATE: SURGEON: ANGELO BRAY MD DATE OF OPERATION: 09/16/2018 PREOPERATIVE DIAGNOSES: Right chronic otitis media and conductive hearing loss. POSTOPERATIVE DIAGNOSES: Right chronic otitis media and conductive hearing loss. PROCEDURE: Right myringotomy and T-tube. SURGEON: Angelo Bray MD ANESTHESIA: General. COMPLICATIONS: None. DISPOSITION: Recovery stable. FINDINGS: Right TM retraction and serous effusion. PROCEDURE NOTE: She was brought to the operating room and placed in supine position, sedated by anesthesia. Left ear was examined first. The tube was then placed and patent, clean and dry, looked just fine. Right ear was examined under the microscope. Cerumen was cleaned with a curette. Canal was normal. TM was retracted. A radial anterior myringotomy was made right over the eustachian tube. Serous fluid was suctioned. The TM did lift up to a flat contour. There was no adherence. T-tube was placed followed by Floxin drops and a cotton ball. There was no bleeding. She was awakened and transported to recovery in good condition. No complications. TRANSINT:[id number] Voice Confirmation ID: [id number] DOCUMENT ID: [id number] ANGELO BRAY MD at 1443 CC: [id number] DICTATION DATE: 09/16/18 1025 DIRECTOR VALIDATION: 09/16/18 1241 [facility] 09/16/[address] [address]
== END 2018-09-16 11:16 | disposition home or self-care (01) ==
LOC: D.OPS 06:24 → D.PAN 08:45 → D.OPS 09:15
PROVIDERS: Anesthesiology; ATTEND Otolaryngology
DX: H65.21 Chronic serous otitis media, right ear (principal); H90.2 Conductive hearing loss, unspecified; H73.891 Other specified disorders of tympanic membrane, right ear; Z01.812 Encounter for preprocedural laboratory examination

== ENCOUNTER 2018-11-20 00:37 | Emergency (ER) | payer MEDICAID ==
[~2018-11-20] VITALS: Ht 157.5 cm; Wt 129.5 kg
[2018-11-20 00:53] VITALS: Ht 157.5 cm; Wt 129.5 kg
[2018-11-20] MEDS ORDERED: KEFLEX500 MG PO (00:55)
[2018-11-20 01:41] LABS: APPEARANCE HAZY (CLEAR); BILIRUBIN NEGATIVE (NEGATIVE); COLOR YELLOW (YELLOW); EPITHELIAL CELLS 0-5 /hpf (0-5); GLUCOSE NEGATIVE (NEGATIVE); KETONE NEGATIVE (NEGATIVE); NITRITE POSITIVE (NEGATIVE); PROTEIN NEGATIVE (NEGATIVE); RED CELLS - URINE 0-5 /hpf (0-5); UROBILINOGEN NORMAL (NORMAL); WHITE CELLS - URINE 0-5 /hpf (0-5)
[2018-11-20 01:42] LABS: BACTERIA MANY /hpf (NONE SEEN)
[2018-11-20 02:49] LABS: BASOPHILS 0.2 % (0-2); EOSINOPHILS 2.9 % (0-7); HEMATOCRIT 39.9 % (36.0-48.0); HEMOGLOBIN 13.1 g/dL (12-16); IMMATURE GRANULOCYTES 0.1 % (0-5); LYMPHOCYTES 40.3 % (15-50); MCH 27.8 pg (26.0-34.0); MCHC 32.8 g/dL (31.0-37.0); MCV 84.5 fL (80.0-100.0); MEAN PLATELET VOLUME 10.9 fL (7.4-10.4); MONOCYTES 5.8 % (2-11); NEUTROPHILS 50.7 % (40-80); PLATELET COUNT 245 10x3/uL (130-400); RBC 4.72 10x6/uL (4.00-5.40); RDW 13.3 % (11.5-14.5); WBC 8.2 10x3/uL (4.8-10.8)
[2018-11-20 02:52] LABS: HCG URINE NEGATIVE (NEGATIVE)
[2018-11-20] MEDS ORDERED: ZOFRAN ODT4 MG/UDTAB PO (02:53)
[2018-11-20] MEDS ORDERED: LEVAQUIN750 MG PO (02:53)
[2018-11-20 03:01] LABS: ALBUMIN 3.2 g/dL (3.4-5.0); ALKALINE PHOSPHATASE 68 U/L (46-116); ALT (SGPT) 23 U/L (10-68); BILIRUBIN - TOTAL 0.21 mg/dL (0.2-1.3); CALC OSMOLALITY 284 mosm/kg (275-300); CALCIUM 8.5 mg/dL (8.5-10.1); CARBON DIOXIDE 29.6 mmol/L (21.0-32.0); CHLORIDE - SERUM 105 mmol/L (98-107); CREATININE - SERUM 0.9 mg/dL (0.6-1.3); GLUCOSE 109 mg/dL (74-106); POTASSIUM - SERUM 4.1 mmol/L (3.5-5.1); PROTEIN - SERUM 6.6 g/dL (6.4-8.2); SODIUM 143 mmol/L (136-145); UREA NITROGEN 11 mg/dL (7-18); eGFR NON AFRICAN AMERICAN 82 mL/min (90-120)
[2018-11-20 03:20] VITALS: BP 118/69
== END 2018-11-20 03:20 | disposition other institution (70) ==
LOC: D.ER 00:37
PROVIDERS: Family Medicine
DX: N39.0 Urinary tract infection, site not specified (principal)

== ENCOUNTER 2018-11-20 16:12 | Emergency (ER) | payer MEDICAID ==
[~2018-11-20] VITALS: Ht 157.5 cm; Wt 113.6 kg
[~2018-11-20 16:12] MED LIST changes: +KEFLEX500 MG PO; +LEVAQUIN750 MG PO; +ZOFRAN ODT4 MG/UDTAB PO
[2018-11-20 16:16] VITALS: Ht 157.5 cm; Wt 113.6 kg
[2018-11-20 16:55] LABS: APPEARANCE CLOUDY (CLEAR); BILIRUBIN NEGATIVE (NEGATIVE); COLOR YELLOW (YELLOW); GLUCOSE NEGATIVE (NEGATIVE); KETONE NEGATIVE (NEGATIVE); NITRITE POSITIVE (NEGATIVE); PROTEIN 1+ mg/dL (NEGATIVE); UROBILINOGEN NORMAL (NORMAL)
[2018-11-20 16:56] LABS: RED CELLS - URINE 0-5 /hpf (0-5)
[2018-11-20 16:57] LABS: BACTERIA MANY /hpf (NONE SEEN)
[2018-11-20 17:07] LABS: BASOPHILS 0.2 % (0-2); EOSINOPHILS 2.1 % (0-7); HEMATOCRIT 46.8 % (36.0-48.0); HEMOGLOBIN 15.5 g/dL (12-16); IMMATURE GRANULOCYTES 0.3 % (0-5); LYMPHOCYTES 23.1 % (15-50); MCHC 33.1 g/dL (31.0-37.0); MCV 84.6 fL (80.0-100.0); MEAN PLATELET VOLUME 11.4 fL (7.4-10.4); MONOCYTES 2.8 % (2-11); NEUTROPHILS 71.5 % (40-80); PLATELET COUNT 252 10x3/uL (130-400); RBC 5.53 10x6/uL (4.00-5.40); RDW 13.4 % (11.5-14.5)
[2018-11-20 17:12] LABS: WBC 10.5 10x3/uL (4.8-10.8)
[2018-11-20 17:28] LABS: ALBUMIN 3.1 g/dL (3.4-5.0); ANION GAP 16.8 mmol/L (8-16); BILIRUBIN - TOTAL 0.35 mg/dL (0.2-1.3); POTASSIUM - SERUM 3.8 mmol/L (3.5-5.1); PROTEIN - SERUM 6.1 g/dL (6.4-8.2)
[2018-11-20 19:58] VITALS: BP 100/60
== END 2018-11-20 19:58 | disposition home or self-care (01) ==
LOC: D.ER 16:12
PROVIDERS: Family Medicine
DX: N39.0 Urinary tract infection, site not specified (principal)

== ENCOUNTER 2018-12-23 11:24 | Emergency (ER) | payer MEDICAID ==
[~2018-12-23] VITALS: Ht 157.5 cm; Wt 113.6 kg
[2018-12-23 11:35] VITALS: Ht 157.5 cm; Wt 113.6 kg
[2018-12-23] MEDS ORDERED: NAPROSYN500 MG PO (12:35)
[2018-12-23] MEDS ORDERED: CIPRODEX OTIC7.5 ML LEFT EAR (12:35)
[2018-12-23 12:41] VITALS: BP 148/95
== END 2018-12-23 12:42 | disposition home or self-care (01) ==
LOC: D.ER 11:24
DX: H92.03 Otalgia, bilateral (principal)

== ENCOUNTER 2018-12-30 17:58 | Emergency (ER) | payer MEDICAID ==
[~2018-12-30] VITALS: Ht 157.5 cm; Wt 113.4 kg
[~2018-12-30 17:58] MED LIST changes: +CIPRODEX OTIC7.5 ML LEFT EAR; +NAPROSYN500 MG PO
[2018-12-30 18:02] VITALS: Ht 157.5 cm; Wt 113.4 kg
[2018-12-30 19:16] VITALS: BP 123/72
== END 2018-12-30 19:16 | disposition home or self-care (01) ==
LOC: D.ER 17:58
DX: Z71.1 Person with feared health complaint in whom no diagnosis is made (principal)

== ENCOUNTER 2019-01-03 21:56 | Emergency (ER) | payer MEDICAID ==
[~2019-01-03] VITALS: Ht 157.5 cm; Wt 113.6 kg
[2019-01-03 22:04] VITALS: Ht 157.5 cm; Wt 113.6 kg
[2019-01-04] MEDS ORDERED: BUTALB-APAP-CA1 EACH PO (00:47)
[2019-01-04 01:30] VITALS: BP 113/75
== END 2019-01-04 01:30 | disposition home or self-care (01) ==
LOC: D.ER 21:56
DX: R51 Headache (principal)

== ENCOUNTER 2019-04-26 22:49 | Emergency (ER) | payer MEDICAID ==
[~2019-04-26] VITALS: Ht 157.5 cm; Wt 90.9 kg
[~2019-04-26 22:49] MED LIST changes: +BUTALB-APAP-CA1 EACH PO
[2019-04-26 23:03] VITALS: Ht 157.5 cm; Wt 90.9 kg
[2019-04-26] MEDS ORDERED: DICLOFENAC SODI50 MG PO (23:15)
[2019-04-26] MEDS ORDERED: AMOXICILLIN875 MG PO (23:15)
[2019-04-26 23:41] VITALS: BP 119/53
== END 2019-04-26 23:39 | disposition home or self-care (01) ==
LOC: D.ER 22:49
DX: H66.91 Otitis media, unspecified, right ear (principal); Z72.0 Tobacco use

== ENCOUNTER 2020-02-02 15:58 | Emergency (ER) | payer MEDICAID ==
[~2020-02-02] VITALS: Ht 213.4 cm; Wt 127.3 kg
[~2020-02-02 15:58] MED LIST changes: +AMOXICILLIN875 MG PO; +DICLOFENAC SODI50 MG PO
[2020-02-02 16:11] VITALS: Ht 213.4 cm; Wt 127.3 kg
[2020-02-02 16:59] LABS: BASOPHILS 0.3 % (0-2); EOSINOPHILS 2.2 % (0-7); HEMATOCRIT 46.5 % (36.0-48.0); IMMATURE GRANULOCYTES 0.2 % (0-5); LYMPHOCYTES 41.7 % (15-50); MCH 27.8 pg (26.0-34.0); MCHC 32.3 g/dL (31.0-37.0); MCV 86.3 fL (80.0-100.0); MEAN PLATELET VOLUME 10.6 fL (7.4-10.4); MONOCYTES 4.7 % (2-11); NEUTROPHILS 50.9 % (40-80); PLATELET COUNT 258 10x3/uL (130-400); RBC 5.39 10x6/uL (4.00-5.40); RDW 12.8 % (11.5-14.5); WBC 6.4 10x3/uL (4.8-10.8)
[2020-02-02 17:00] LABS: BILIRUBIN NEGATIVE (NEGATIVE); KETONE NEGATIVE (NEGATIVE); NITRITE NEGATIVE (NEGATIVE); UROBILINOGEN NORMAL mg/dL (< 2)
[2020-02-02 17:06] LABS: ANION GAP 12.6 mmol/L (8-16); CALCIUM 9.2 mg/dL (8.5-10.1); CARBON DIOXIDE 29.2 mmol/L (21.0-32.0); POTASSIUM - SERUM 3.8 mmol/L (3.5-5.1)
[2020-02-02 17:07] LABS: HCG URINE NEGATIVE (NEGATIVE)
[2020-02-02 17:11] LABS: ALBUMIN 4.1 g/dL (3.4-5.0); BILIRUBIN - TOTAL 0.57 mg/dL (0.2-1.3); MAGNESIUM - SERUM 1.9 mg/dL (1.8-2.4); PROTEIN - SERUM 8.2 g/dL (6.4-8.2)
[2020-02-02 18:05] VITALS: BP 122/73
== END 2020-02-02 18:05 | disposition home or self-care (01) ==
LOC: D.ER 15:58
PROVIDERS: Family Medicine
DX: R30.0 Dysuria (principal); R10.9 Unspecified abdominal pain

== ENCOUNTER 2020-07-26 22:21 | Emergency (ER) | payer MEDICAID ==
[~2020-07-26] VITALS: Ht 213.4 cm; Wt 131.8 kg
[2020-07-26 22:25] VITALS: Ht 213.4 cm; Wt 131.8 kg
[2020-07-26] MEDS ORDERED: ESTRADERM 0.00.05 MG TD (22:29)
[2020-07-26] MEDS ORDERED: HYDROCODON-ACE1 EA10 PO (22:29)
[2020-07-26 22:48] LABS: BILIRUBIN NEGATIVE (NEGATIVE); HCG URINE NEGATIVE (NEGATIVE); KETONE NEGATIVE (NEGATIVE); NITRITE NEGATIVE (NEGATIVE); UROBILINOGEN NORMAL mg/dL (< 2)
[2020-07-26 22:51] LABS: BASOPHILS 0.3 % (0-2); EOSINOPHILS 1.8 % (0-7); HEMATOCRIT 40.4 % (36.0-48.0); HEMOGLOBIN 13.2 g/dL (12-16); IMMATURE GRANULOCYTES 0.1 % (0-5); LYMPHOCYTE ABS# 2.31 10x3/uL (1.18-3.74); LYMPHOCYTES 31.4 % (15-50); MCH 28.6 pg (26.0-34.0); MCHC 32.7 g/dL (31.0-37.0); MCV 87.6 fL (80.0-100.0); MEAN PLATELET VOLUME 10.5 fL (7.4-10.4); MONOCYTES 6.1 % (2-11); NEUTROPHIL ABS# 4.44 10x3/uL (1.56-6.13); NEUTROPHILS 60.3 % (40-80); PLATELET COUNT 237 10x3/uL (130-400); RBC 4.61 10x6/uL (4.00-5.40); RDW 12.9 % (11.5-14.5); WBC 7.4 10x3/uL (4.8-10.8)
[2020-07-26 22:57] LABS: CALC OSMOLALITY 280 mosm/kg (275-300); CALCIUM 8.9 mg/dL (8.5-10.1); CARBON DIOXIDE 27.6 mmol/L (21.0-32.0); CHLORIDE - SERUM 105 mmol/L (98-107); CREATININE - SERUM 0.9 mg/dL (0.6-1.3); GLUCOSE 95 mg/dL (74-106); POTASSIUM - SERUM 3.6 mmol/L (3.5-5.1); SODIUM 141 mmol/L (136-145); UREA NITROGEN 13 mg/dL (7-18); eGFR NON AFRICAN AMERICAN 81 mL/min (90-120)
[2020-07-26 23:03] LABS: ALBUMIN 3.9 g/dL (3.4-5.0); ALKALINE PHOSPHATASE 67 U/L (30-120); ALT (SGPT) 31 U/L (10-68); BILIRUBIN - TOTAL 0.45 mg/dL (0.2-1.3); PROTEIN - SERUM 7.1 g/dL (6.4-8.2)
[2020-07-27] MEDS ORDERED: ULTRAM50 MG PO (00:35)
[2020-07-27 00:41] VITALS: BP 132/90
== END 2020-07-27 00:41 | disposition home or self-care (01) ==
LOC: D.ER 22:21
PROVIDERS: Family Medicine
DX: R10.2 Pelvic and perineal pain (principal); N80.9 Endometriosis, unspecified

== ENCOUNTER 2020-08-14 07:25 | Day surgery (SDC) | payer MEDICAID ==
[~2020-08-14] VITALS: Ht 162.6 cm; Wt 128.8 kg
[~2020-08-14 07:25] MED LIST changes: +ESTRADERM 0.00.05 MG TD; +HYDROCODON-ACE1 EA10 PO; +PHENERGAN PO; +TORADOL10 MG PO; +ULTRAM50 MG PO
[2020-08-14 07:57] LABS: HEMATOCRIT 39.6 % (36.0-48.0); HEMOGLOBIN 12.7 g/dL (12-16); MCH 28.2 pg (26.0-34.0); MCHC 32.1 g/dL (31.0-37.0); MEAN PLATELET VOLUME 10.9 fL (7.4-10.4); RBC 4.5 10x6/uL (4.00-5.40); RDW 12.8 % (11.5-14.5); WBC 5.7 10x3/uL (4.8-10.8)
[2020-08-14 08:03] LABS: HCG SERUM NEGATIVE (NEGATIVE)
[2020-08-14 08:56] VITALS: BP 138/97; Ht 162.6 cm; Wt 128.8 kg
--- NOTE | 2020-08-14 14:28 | NUR ---
1355 PERCOCET 10MG PO GIVEN FOR PAIN RATED 8/10. UP TO BR VOIDS LG AMT. AMBULATED WELL.
[2020-08-15] MEDS ORDERED: COMPAZINE25 MG RC (04:24)
[2020-08-15] MEDS ORDERED: ZOFRAN ODT4 MG/UDTAB PO (04:24)
== END 2020-08-14 14:20 | disposition home or self-care (01) ==
LOC: D.OPS 07:25
PROVIDERS: Anesthesiology; ATTEND Obstetrics & Gynecology Maternal & Fetal Medicine
DX: R10.2 Pelvic and perineal pain (principal); N80.9 Endometriosis, unspecified

== ENCOUNTER 2020-08-15 00:13 | Emergency (ER) | payer MEDICAID ==
[~2020-08-15] VITALS: Ht 162.6 cm; Wt 129.1 kg
[2020-08-15 00:19] VITALS: Ht 162.6 cm; Wt 129.1 kg
[2020-08-15 01:08] LABS: BILIRUBIN NEGATIVE (NEGATIVE); KETONE NEGATIVE (NEGATIVE); NITRITE NEGATIVE (NEGATIVE); UROBILINOGEN NORMAL mg/dL (< 2)
[2020-08-15 01:09] LABS: BACTERIA NONE SEEN HPF (NONE SEEN); SQUAMOUS EPITHELIAL 0-5 HPF (0-4); WHITE CELLS - URINE 0-5 HPF (0-4)
[2020-08-15 01:11] LABS: BASOPHILS 0 % (0-2); EOSINOPHILS 0 % (0-7); HEMATOCRIT 39.7 % (36.0-48.0); IMMATURE GRANULOCYTES 0.3 % (0-5); LYMPHOCYTE ABS# 0.49 10x3/uL (1.18-3.74); LYMPHOCYTES 6.9 % (15-50); MCH 28.4 pg (26.0-34.0); MCHC 32.7 g/dL (31.0-37.0); MCV 86.9 fL (80.0-100.0); MEAN PLATELET VOLUME 11.4 fL (7.4-10.4); MONOCYTES 0 % (2-11); NEUTROPHIL ABS# 6.63 10x3/uL (1.56-6.13); NEUTROPHILS 92.8 % (40-80); PLATELET COUNT 280 10x3/uL (130-400); RBC 4.57 10x6/uL (4.00-5.40); RDW 12.7 % (11.5-14.5); WBC 7.1 10x3/uL (4.8-10.8)
[2020-08-15 02:01] LABS: CALC OSMOLALITY 278 mosm/kg (275-300); CARBON DIOXIDE 25.2 mmol/L (21.0-32.0); CHLORIDE - SERUM 103 mmol/L (98-107); CREATININE - SERUM 1.1 mg/dL (0.6-1.3); GLUCOSE 174 mg/dL (74-106); POTASSIUM - SERUM 4.2 mmol/L (3.5-5.1); SODIUM 138 mmol/L (136-145); UREA NITROGEN 9 mg/dL (7-18); eGFR NON AFRICAN AMERICAN 64 mL/min (90-120)
[2020-08-15 02:05] LABS: ALBUMIN 3.4 g/dL (3.4-5.0); ALKALINE PHOSPHATASE 84 U/L (30-120); ALT (SGPT) 149 U/L (10-68); AMYLASE - SERUM 22 U/L (25-115); BILIRUBIN - TOTAL 0.34 mg/dL (0.2-1.3); LIPASE 50 U/L (73-393)
[2020-08-15 02:06] LABS: TROPONIN-I < 0.017 ng/mL (0.000-0.060)
[2020-08-15] MEDS ORDERED: COMPAZINE25 MG RC (04:24)
[2020-08-15] MEDS ORDERED: ZOFRAN ODT4 MG/UDTAB PO (04:24)
[2020-08-15 04:47] VITALS: BP 119/83
== END 2020-08-15 04:44 | disposition home or self-care (01) ==
LOC: D.ER 00:13
PROVIDERS: Family Medicine
DX: R11.2 Nausea with vomiting, unspecified (principal); G89.18 Other acute postprocedural pain

== ENCOUNTER 2020-08-15 23:13 | Emergency (ER) | payer MEDICAID ==
[~2020-08-15] VITALS: Ht 162.6 cm; Wt 129.1 kg
[~2020-08-15 23:13] MED LIST changes: +COMPAZINE25 MG RC
[2020-08-15 23:18] VITALS: BP 113/80; Ht 162.6 cm; Wt 129.1 kg
== END 2020-08-15 23:42 | disposition home or self-care (01) ==
LOC: D.ER 23:13
DX: G89.18 Other acute postprocedural pain (principal); R10.9 Unspecified abdominal pain